=== PATIENT | female | born 1955 | race African-American/Black ===

== ENCOUNTER → 2017-06-17 | Outpatient (CLI) | payer OTHER ==
[~2017-06-17] MED LIST: B-CO1CAP3 PO; BIOTCAP2 PO; CHOL20005 PO; CYAN100020 PO; FLAX100019 PO; HERBAL LAXATIVE PO; INUL1CHW2 PO; MULT-845 PO; OMEG100046 PO; OMEGA RED PO; PYRI50TA77 PO; SNG10 PO; ZINC30TA3 PO
[2017-06-17 14:05] LABS: ESTIMATED AVERAGE GLUCOSE 126 mg/dl; HA1C FLAG Normal (Normal)
[2017-06-17 14:09] LABS: ALT/SGPT 24 U/L (12-78); AST/SGOT 10 U/L (15-37); BLOOD UREA NITROGEN 9 mg/dl (7-18); BUN/CREATININE RATIO 10.1 (10-20); CALCIUM 8.7 mg/dl (8.5-10.1); CARBON DIOXIDE 29 mmol/L (21-32); CHLORIDE 109 mmol/L (98-107); CREATININE 0.91 mg/dl (0.60-1.20); GLUCOSE 95 mg/dl (70-99); SODIUM 143 mmol/L (136-145)
[2017-06-17 14:20] LABS: ALB/GLOB RATIO 0.8 (0.9-2); ALKALINE PHOSPHATASE 57 U/L (45-117); CHOLESTEROL 173 mg/dl (0-200); CHOLESTEROL/HDL RATIO 4.2; HDL CHOLESTEROL 41 mg/dl; LDL CHOLESTEROL CALCULATED 115 mg/dl; TRIGLYCERIDES 85 mg/dl (0-150); VERY LOW DENSITY LIPOPROT CALC 17 mg/dl
== END | disposition home or self-care (01) ==
LOC: C.LABBC 10:30
PROVIDERS: ATTEND Physician Assistant Medical
DX: Z00.00 Encounter for general adult medical examination without abnormal findings (principal); J45.909 Unspecified asthma, uncomplicated; E55.9 Vitamin D deficiency, unspecified; R73.09 Other abnormal glucose

== ENCOUNTER → 2018-01-31 | Outpatient (CLI) | payer OTHER ==
--- NOTE | 2018-01-31 13:04 | DIAGNOSTIC IMAGING REPORT ---
CHEST 2 VIEWS ROUTINE CLINICAL HISTORY: J20.9 Acute bronchitis with [id number] dyspnea COMPARISON STUDY: No previous studies for comparison. FINDINGS: Mild bibasilar interstitial change. No focal or consolidative infiltrate. Pulmonary procedure clear. IMPRESSION: Mild basilar bronchitis versus pulmonary venous congestion. The above report was generated using voice recognition software. It may contain grammatical, syntax or spelling errors. Electronically signed by: Tyrone Syed M.D. 01/31/2018 1:03 PM Dictated Date/Time: 01/31/2018 12:58 PM
== END | disposition home or self-care (01) ==
LOC: C.RADBC 12:20
PROVIDERS: ATTEND Internal Medicine
DX: J20.9 Acute bronchitis, unspecified (principal)

== ENCOUNTER → 2018-02-14 | Outpatient (CLI) | payer OTHER ==
[2018-02-14 13:06] LABS: HEMOGLOBIN A1C 6.4 % (4.5-5.6)
== END | disposition home or self-care (01) ==
LOC: C.LABBC 10:32
PROVIDERS: ATTEND Internal Medicine
DX: R73.09 Other abnormal glucose (principal)

== ENCOUNTER → 2018-05-05 | Outpatient (CLI) | payer OTHER ==
[2018-05-06 06:23] LABS: HEMOGLOBIN A1C 5.9 % (4.5-5.6)
== END | disposition home or self-care (01) ==
LOC: C.LABBC 14:38
PROVIDERS: ATTEND Physician Assistant Medical
DX: R73.09 Other abnormal glucose (principal)

== ENCOUNTER 2021-12-25 08:44 | Inpatient (IN) ==
[2021-12-25] MEDS ORDERED: ONDANSETRON INJ 2 MG/ML 2 ML VIAL IV STA ×3 (09:05→12:47)
[2021-12-25] MEDS ORDERED: FAMOTIDINE 20MG IV PUSH 20 MG/5 ML SYR IV STA (09:05)
[2021-12-25] MEDS ORDERED: ACETAMINOPHEN 1,000 MG/100 ML VIAL IV STA (09:05)
--- NOTE | 2021-12-25 09:11 | Emergency Department Note ---
History of Present Illness General Chief complaint: Vomiting Stated complaint: VOMITING Time Seen by Provider: 12/25/21 08:53 Source: patient Mode of arrival: ambulatory Limitations: no limitations History of Present Illness Provider complaint: nausea, epigastric pain Onset (ago): hour(s) 7 Location: abdomen Radiation: non-radiation Severity: moderate Pain Consistency: + constant Maximum Pain Intensity: 5 Quality: + constant Relieved By: + none Exacerbated By: + none Associated symptoms: + loss of appetite and + nausea/vomiting; no chest pain, no fever/chills or no shortness of breath Treatments prior to arrival: none This is a 66-year-old female who presents emergency department complaining of epigastric pain and nausea. Patient states she felt fine when she went to bed last night around 10, however awoke around 230 with symptoms. She states she tried to walk around for a while to see if they would resolve and they did not. She states between 430 and 5 AM she then ate a small bowl of cereal which is her usual routine. Patient denies any recent known sick contacts or change in medication. Patient denies any change in the pain with change in position. Patient denies any recent change in bowel movements or urine. She denies feve rs, chills, chest pain, shortness of breath. No prior similar episodes. Patient states many years ago she was told she had problems with her gallbladder, however had no further follow-up or removal. Denies history of IBS, IBD, or PUD. Pt seen during a time of high acuity and national emergency pandemic while wearing PPE. Home Medications Medication Instructions Recorded Confirmed Type inhalational spacing device #1 ea 08/11/19 09/13/21 History (Aerochamber Plus Z Stat) azelastine 137 mcg (0.1 %) nasal 2 spray INTRANASAL DAILY PRN #30 ml 09/13/21 12/25/21 Rx spray aerosol calcium citrate 250 mg PO DAILY PRN #30 tab 09/13/21 12/25/21 Rx cholecalciferol (vitamin D3) 50 5,000 unit PO DAILY #360 tab 09/13/21 12/25/21 Rx mcg (2,000 unit) tablet fluticasone furoate 200 1 inh INH BID PRN #90 units 09/13/21 12/25/21 Rx mcg-vilanterol 25 mcg/dose inhalation powder (Breo Ellipta) loratadine 10 mg tablet 10 mg PO DAILY PRN #30 tab 09/13/21 12/25/21 Rx montelukast 10 mg tablet 10 mg PO DAILY PRN #30 tab 09/13/21 12/25/21 Rx multivitamin with minerals 1 tab PO .every other day tab 09/13/21 12/25/21 History (Hair,Skin and Nails) omega-3 acid ethyl esters 1 gram 1 cap PO .every other day #90 cap 09/13/21 12/25/21 History capsule Allergies Allergy/AdvReac Type Severity Reaction Status Date / Time metformin Allergy Verified 12/25/21 12:07 perflutren Allergy Verified 12/25/21 12:07 nickel AdvReac Intermediate Rash Unverified 12/25/21 12:07 peach AdvReac Intermediate Rash Unverified 12/25/21 12:07 NSAIDS (Non-Steroidal AdvReac Unknown UPSET Verified 12/25/21 12:07 Anti-Inflamma STOMACH POLLENS Allergy Mild RESPIRATORY Uncoded 12/25/21 12:07 ISSUES Past Med/Surg History Medical History (Updated 12/25/21 @ 17:18 by Lily Aragon DO) Asthma BMI 40.0-44.9, adult Chronic lower back pain Pre-diabetes Vitamin D deficiency Surgical History History of section History of colonoscopy Family History Unknown No pertinent family history Social History Smoking Status: Never smoker Hx Alcohol Use: No Hx Substance Use: No Preferred Language: Luxembourger Communication Ability: Effective Visual Impairment: Limited Hearing Ability: Normal Continuity Clerk Required: No Beliefs That Will Affect Care: None marital status: Single Current Living Situation: Alone current occupational status: disabled Feels Safe at Home: Yes Childhood Exposure to Second-Hand Smoke: Yes Dental Care, Regularly: No Physical Activity Frequency: Does not Exercise Seatbelt Use: always Sunscreen Use: No Assistive Devices: Denture - Upper, Denture - Lower and Glasses Review of Systems A total of 10 systems reviewed and were otherwise negative All systems reviewed & are unremarkable except as noted in HPI & below Physical Exam Vital Signs Vital Signs - 24 hr 12/25/21 08:47 12/25/21 12:06 Temperature 36.7 C Temperature Source Temporal Artery Scan Pulse Rate 63 Pulse Rate [Finger] 64 Respiratory Rate 18 Blood Pressure 162/78 H Blood Pressure [Right Arm] 158/69 H Blood Pressure Mean 106 Blood Pressure Mean [Right Arm] 98 Blood Pressure Position Sitting Pulse Oximetry 94 94 Oxygen Delivery Method Room Air Nasal Cannula Oxygen Flow Rate 2 Sepsis Recent Fever Within 48 Hours No Sepsis New/Unexplained Change in Mental Status No Sepsis Action Taken by Nursing No Action Required GENERAL: alert, uncomfortable appearing, well nourished, mild distress, non- toxic, BMI>40 EYE EXAM: normal conjunctiva, PERRL and EOM's grossly intact OROPHARYNX: no exudate, no erythema, lips, buccal mucosa, and tongue normal and mucous membranes are moist, edentulous NECK: supple, no nuchal rigidity, no adenopathy, non-tender LUNGS: Clear to auscultation. Normal chest wall mechanics, no w/r/r HEART: no murmurs, S1 normal and S2 normal ABDOMEN: abdomen soft, epigastric tenderness with palpation, normo-active bowel sounds, no masses, no rebound or guarding. BACK: Back is symmetrical on inspection and there is no deformity, no midline tenderness, no CVA tenderness. SKIN: no rashes and no bruising UPPER EXTREMITIES: upper extremities are grossly normal. FROM, nml pulses b/l. LOWER EXTREMITIES: No pitting edema. FROM, nml pulses b/l. NEURO EXAM: Normal sensorium, cranial nerves II-XII grossly intact, normal speech, no gross weakness of arms, no gross weakness of legs. Gross sensation intact. Course Course 1135: Discussed with patient. She is still vomiting bilious emesis, patient given a fresh emesis bag. Discussed results. 1145: Discussed with Herminia machado PA-C, will add Covid test and they will come and evaluate. Administered Medications Hydromorphone HCl (Hydromorphone Inj 0.5 Mg/0.5 Ml Syr) 0.5 mg IV Q6H PRN PRN Reason: Pain Stop: 01/08/22 14:39 Last Admin: 12/25/21 15:16 Dose: 0.5 mg Documented by: [id number] Potassium Chloride/Dextrose/Sod Cl (D5w And 1/2nss + 20meq Kcl) 20 meq in 1,000 mls @ 100 mls/hr IV .Q10H LANCE; Protocol Stop: 01/24/22 15:59 Last Admin: 12/25/21 15:17 Dose: 100 mls/hr Documented by: [id number] Multivitamins/Minerals (Cerovite Adv Formula Tab) 1 tab PO Q2D@0900 [facility] Stop: 01/24/22 14:39 Last Admin: 12/25/21 15:26 Dose: Not Given Documented by: [id number] Ondansetron HCl (Ondansetron Inj 2 Mg/Ml 2 Ml Vial) 4 mg IV Q6H PRN PRN Reason: Nausea And Vomiting Stop: 01/24/22 15:27 Last Admin: 12/25/21 16:03 Dose: 4 mg Documented by: [id number] Discontinued Medications Fentanyl Citrate (Fentanyl Citrate 100 Mcg/2 Ml Vial) 50 mcg IV Q15M PRN PRN Reason: Pain Stop: 01/08/22 11:41 Last Admin: 12/25/21 13:29 Dose: 50 mcg Documented by: [id number] Admin: 12/25/21 11:54 Dose: 50 mcg Documented by: [id number] Acetaminophen (Ofirmev) 1,000 mg in 100 mls @ 400 mls/hr IV NOW STA Stop: 12/25/21 09:19 Last Infusion: 12/25/21 11:15 Dose: 0 mls/hr Documented by: [id number] Admin: 12/25/21 09:49 Dose: 400 mls/hr Documented by: [id number] Famotidine (Pepcid 20mg Iv Push) 20 mg in 5 mls @ 2.5 mls/min IV NOW STA Stop: 12/25/21 09:06 Last Admin: 12/25/21 09:45 Dose: 2.5 mls/min Documented by: [id number] Sodium Chloride (Nss 1000ml) 1,000 mls @ 125 mls/hr IV .Q8H LANCE Stop: 01/24/22 09:14 Last Infusion: 12/25/21 14:55 Dose: 0 mls/hr Documented by: [id number] Admin: 12/25/21 09:46 Dose: 125 mls/hr Documented by: [id number] Piperacillin Sod/Tazobactam (Sod 4.5 gm/ Dextrose) 120 mls @ 200 mls/hr IV NOW ONE; Protocol Stop: 12/25/21 15:35 Last Infusion: 12/25/21 15:55 Dose: 0 mls/hr Documented by: [id number] Admin: 12/25/21 15:19 Dose: 200 mls/hr Documented by: [id number] Ondansetron HCl (Ondansetron Inj 2 Mg/Ml 2 Ml Vial) 4 mg IV NOW STA Stop: 12/25/21 09:06 Last Admin: 12/25/21 09:45 Dose: 4 mg Documented by: [id number] Ondansetron HCl (Ondansetron Inj 2 Mg/Ml 2 Ml Vial) 4 mg IV NOW STA Stop: 12/25/21 11:43 Last Admin: 12/25/21 11:54 Dose: 4 mg Documented by: [id number] Ondansetron HCl (Ondansetron Inj 2 Mg/Ml 2 Ml Vial) 4 mg IV NOW STA Stop: 12/25/21 12:48 Last Admin: 12/25/21 13:29 Dose: 4 mg Documented by: [id number] Medical Decision Making Differential Diagnosis Differential diagnoses includes but is not limited to gastritis, peptic ulcer disease, GERD, gallbladder disease, pancreatitis, small bowel obstruction, acute coronary syndrome, pericarditis, ischemic bowel, irritable bowel disease, irritable bowel syndrome, appendicitis, diverticulitis, malignancy, hernia, urinary tract infection, torsion, [/ectopic (if female)], perforation, trauma, infectious. Medical Records Attestation: I reviewed the patient's medical records. Home Medications Current Medication List: was personally reviewed by me Laboratory Data Attestation: I reviewed the patient's lab results. Result diagrams: 12/25/21 09:24 12/25/21 09:24 Lab Results 12/25/21 12/25/21 12/25/21 Range/Units 09:24 09:24 09:24 WBC 10.19 (4.8-10.8) K/uL RBC 5.31 (4.2-5.4) M/uL Hgb 14.6 (12.0-16.0) g/dL Hct 43.7 (37-47) % MCV 82.3 (80-100) fL MCH 27.5 (25-34) pg MCHC 33.4 (32-36) g/dL RDW Std Deviation 44.6 (36.4-46.3) fL RDW Coeff of Manohar 14.8 H (11.5-14.5) % Plt Count 266 (130-400) K/uL MPV 11.1 H (7.4-10.4) fL Immature Gran % (Auto) 0.2 % Neut % (Auto) 82.1 % Lymph % (Auto) 12.7 % Maverick % (Auto) 3.3 % Eos % (Auto) 1.3 % Baso % (Auto) 0.4 % Neut # (Auto) 8.37 H (1.4-6.5) K/uL Lymph # (Auto) 1.29 (1.2-3.4) K/uL Maverick # (Auto) 0.34 (0.11-0.59) K/uL Eos # (Auto) 0.13 (0-0.5) K/uL Baso # (Auto) 0.04 (0-0.2) K/uL Immature Gran # (Auto) 0.02 (0.00-0.02) K/uL Sodium 137 (136-145) mmol/L Potassium 4.0 (3.5-5.1) mmol/L Chloride 105 (98-107) mmol/L Carbon Dioxide 24 (21-32) mmol/L Anion Gap 8 (3-11) BUN 15 (6-23) mg/dl Creatinine 0.77 (0.6-1.2) mg/dl Est Cr Clr Drug Dosing 96.8 ml/min Est GFR ( Amer) 93.9 ml/min Est GFR (Non-Af Amer) 81.0 ml/min BUN/Creatinine Ratio 19.5 (10-20) Glucose 137 H (70-99(Fasting)) mg/dl Lactate 1.6 (0.4-2.0) mmol/L Calcium 9.5 (8.5-10.1) mg/dl Magnesium 2.1 (1.7-2.4) mg/dl Total Bilirubin 0.4 (0.2-1.0) mg/dl AST 13 (13-39) U/L ALT 13 (7-52) U/L Alkaline Phosphatase 52 (34-104) U/L Troponin I < 0.03 (0-0.04) ng/ml Total Protein 8.1 (6.0-8.3) gm/dl Albumin 4.2 (3.4-5.0) gm/dl Globulin 3.9 (2.5-4.0) gm/dl Albumin/Globulin Ratio 1.1 (0.9-2) Lipase 45 (11-82) U/L Imaging Data Radiologist's Impression: Abdomen Ultrasound 12/25/21 09:05 ULTRASOUND RIGHT UPPER QUADRANT ABDOMEN CLINICAL HISTORY: Epigastric abdominal pain. COMPARISON STUDY: No priors. TECHNIQUE: Real-time, grayscale, and color flow sonography of the right upper quadrant of the abdomen was performed. Images are reviewed in the transverse and longitudinal planes. FINDINGS: Liver: The liver is normal in size and echotexture. There is no intrahepatic biliary ductal dilatation. The main portal vein is patent. Gallbladder: The gallbladder is mildly distended measuring 9.7 cm in length. There are shadowing gallstones, with a 1.0 cm stone in the region of the gallbladder neck. There is no gallbladder wall thickening or pericholecystic fluid. A sonographic Pro's sign is reportedly present. Small foci of a denomyomatosis are incidentally noted. The common bile duct measures up to 0.4 cm in diameter. Pancreas: Visualized portions of the pancreatic head and body are normal in chivo earance. Right kidney: Survey images of the right kidney demonstrate normal size and echotexture. There is no hydronephrosis. Ascites: None. IMPRESSION: 1. Cholelithiasis with mild gallbladder distention and a 1 cm stone in the region of the gallbladder neck. Although there is no gallbladder wall thickening, a sonographic Pro's sign is reportedly present and acute cholecystitis is not excluded. Correlate with clinical and laboratory findings. 2. There is no intra or extrahepatic biliary ductal dilatation. ACT 112: Negative or not required by law. Electronically signed by: Timmy Ozuna M.D. 12/25/2021 11:19 AM Chest X-Ray 12/25/21 09:05 XR chest 1V portable CLINICAL HISTORY: epigastric pain. Evaluate lung bases. COMPARISON STUDY: No previous studies for comparison. TECHNIQUE: 1 view of the chest FINDINGS: Single frontal view of the chest demonstrates the cardiomediastinal silhouette to be within normal limits. There is a decreased inspiratory effort with elev ation of the hemidiaphragms and crowding of the bronchovascular markings at the lung bases and centrally. The lungs are clear of alveolar opacities. There is no evidence for pleural effusion. There is no evidence for vascular congestion. There is no acute osseous pathology. IMPRESSION: 1. There is a decreased inspiratory effort with otherwise no acute chest di sease. ACT 112: Negative or not required by law. Electronically signed by: Roberto Sauer M.D. 12/25/2021 9:50 AM MDM Narrative This is a 66-year-old female who presents emergency department complaining of epigastric pain, nausea and vomiting. Patient was afebrile and hemodynamically stable. Labs drawn and sent which were reassuring. Patient sent for ultrasound which did show large gallstone at the gallbladder neck and findings suggestive of possible evolving acute cholecystitis. Case discussed with general surgery on-call who came and evaluated the patient at bedside. Patient was given additional medication for nausea and pain. Patient remained hemodynamically stable while in the ER. An order was placed for continuous cardiac monitoring. The monitor shows a rate of _66_ with _normal sinus_ rhythm. Impression & Plan Nausea & vomiting, Acute cholecystitis due to biliary calculus, Acute epigastric pain Discharge Plan Visit Data Chief Complaint: Vomiting Stated Complaint: VOMITING ED Provider: Lily Aragon Discharge Problem: Nausea & vomiting, Acute cholecystitis due to biliary calculus, Acute epigastric pain Patient Disposition: Admitted As Inpatient Discharge Instructions Interventions: ED Discharge Assessment Last Done: 12/25/21 14:25 Discharge Problem: Nausea & vomiting Qualifiers: Vomiting type: bilious vomiting Qualified Code(s): R11.14 - Bilious vomiting
[2021-12-25] MEDS ORDERED: SODIUM CHLORIDE 0.9% 1000ML 1,000 ML IV SCH (09:15)
[2021-12-25 09:51] LABS: Basophils # (auto) 0.04 K/uL (0-0.2); Basophils % (auto) 0.4 %; Eosinophils # (auto) 0.13 K/uL (0-0.5); Eosinophils % (auto) 1.3 %; Hematocrit (blood only) 43.7 % (37-47); Hemoglobin 14.6 g/dL (12.0-16.0); Immature Granulocytes # (auto) 0.02 K/uL (0.00-0.02); Immature Granulocytes % (auto) 0.2 %; Lymphocytes # (auto) 1.29 K/uL (1.2-3.4); Lymphocytes % (auto) 12.7 %; Mean Corpuscular Hemoglobin 27.5 pg (25-34); Mean Corpuscular Hgb Conc 33.4 g/dL (32-36); Mean Corpuscular Volume 82.3 fL (80-100); Mean Platelet Volume 11.1 fL (7.4-10.4); Monocytes # (auto) 0.34 K/uL (0.11-0.59); Monocytes % (auto) 3.3 %; Neutrophils # (auto) 8.37 K/uL (1.4-6.5); Neutrophils % (auto) 82.1 %; Platelet Count 266 K/uL (130-400); RDW Coefficient of Variation 14.8 % (11.5-14.5); RDW Standard Deviation 44.6 fL (36.4-46.3); Red Blood Count 5.31 M/uL (4.2-5.4); White Blood Count 10.19 K/uL (4.8-10.8)
--- NOTE | 2021-12-25 09:51 | XRay Report ---
XR chest 1V portable CLINICAL HISTORY: epigastric pain. Evaluate lung bases. COMPARISON STUDY: No previous studies for comparison. TECHNIQUE: 1 view of the chest FINDINGS: Single frontal view of the chest demonstrates the cardiomediastinal silhouette to be within normal li mits. There is a decreased inspiratory effort with elevation of the hemidiaphragms and crowding of th e bronchovascular markings at the lung bases and centrally. The lungs are clear of alveolar opacities . There is no evidence for pleural effusion. There is no evidence for vascular congestion. There is n o acute osseous pathology. IMPRESSION: 1. There is a decreased inspiratory effort with otherwise no acute chest disease. ACT 112: Negative or not required by law. Electronically signed by: Roberto Sauer M.D. 12/25/2021 9:50 AM
[2021-12-25 10:11] LABS: Troponin I < 0.03 ng/ml (0-0.04)
[2021-12-25 10:15] LABS: Alanine Aminotransferase 13 U/L (7-52); Albumin Globulin Ratio 1.1 (0.9-2); Albumin Level 4.2 gm/dl (3.4-5.0); Alkaline Phosphatase 52 U/L (34-104); Anion Gap 8 (3-11); Aspartate Aminotransferase 13 U/L (13-39); BUN Creatinine Ratio 19.5 (10-20); Bilirubin,Total 0.4 mg/dl (0.2-1.0); Blood Urea Nitrogen 15 mg/dl (6-23); Calcium 9.5 mg/dl (8.5-10.1); Carbon Dioxide 24 mmol/L (21-32); Chloride 105 mmol/L (98-107); Creatinine Clr Calc Pharmacy 96.8 ml/min; Est GFR (African American) 93.9 ml/min; Globulin 3.9 gm/dl (2.5-4.0); Glucose 137 mg/dl (70-99(Fasting)); Lipase 45 U/L (11-82); Magnesium 2.1 mg/dl (1.7-2.4); Sodium 137 mmol/L (136-145); Total Protein 8.1 gm/dl (6.0-8.3)
--- NOTE | 2021-12-25 11:20 | Ultrasound Report ---
ULTRASOUND RIGHT UPPER QUADRANT ABDOMEN CLINICAL HISTORY: Epigastric abdominal pain. COMPARISON STUDY: No priors. TECHNIQUE: Real-time, grayscale, and color flow sonography of the right upper quadrant of the abdomen was performed. Images are reviewed in the transverse and longitudinal planes. FINDINGS: Liver: The liver is normal in size and echotexture. There is no intrahepatic biliary ductal dilatatio n. The main portal vein is patent. Gallbladder: The gallbladder is mildly distended measuring 9.7 cm in length. There are shadowing gall stones, with a 1.0 cm stone in the region of the gallbladder neck. There is no gallbladder wall thick ening or pericholecystic fluid. A sonographic Pro's sign is reportedly present. Small foci of yamileth omyomatosis are incidentally noted. The common bile duct measures up to 0.4 cm in diameter. Pancreas: Visualized portions of the pancreatic head and body are normal in appearance. Right kidney: Survey images of the right kidney demonstrate normal size and echotexture. There is no hydronephrosis. Ascites: None. IMPRESSION: 1. Cholelithiasis with mild gallbladder distention and a 1 cm stone in the region of the gallbladder neck. Although there is no gallbladder wall thickening, a sonographic Pro's sign is reportedly pre sent and acute cholecystitis is not excluded. Correlate with clinical and laboratory findings. 2. There is no intra or extrahepatic biliary ductal dilatation. ACT 112: Negative or not required by law. Electronically signed by: Timmy Ozuna M.D. 12/25/2021 11:19 AM
[2021-12-25] MEDS: fentaNYL citrate 100 MCG/2 ML VIAL IV PRN ×2 (11:54→13:29)
--- NOTE | 2021-12-25 12:54 | Surgery Consultation ---
Date of Consultation December 25, 2021 Assessment & Plan (1) Acute cholecystitis due to biliary calculus: pt is a 66 year-old female who presents to Er with RUQ and nausea and vomiting, IMP: Acute cholecystitis, cholelithiasis, plan, I recommend to admit pt to hospital for control pain iv antibiotic, iv fluid, will do laparoscopic cholecystectomy, possible open or cholangiogram, tomorrow, D/W benefits, risks and alternatives of the surgery, the risks - infection,bleeding, injury other organs, CT, DVT, stroke, , pt understood, she agrees with the surgery, I answered all questions, History of Present Illness Reason for Consultation: acute cholecystitis Requesting Physician: Timmy Beck MD History of Present Illness History of Present Illness General Chief complaint: Vomiting Stated complaint: VOMITING Time Seen by Provider: 12/25/21 08:53 Source: patient Mode of arrival: ambulatory Limitations: no limitations History of Present Illness Provider complaint: nausea, epigastric pain Onset (ago): hour(s) 7 Location: abdomen Radiation: non-radiation Severity: moderate Pain Consistency: + constant Maximum Pain Intensity: 5 Quality: + constant Relieved By: + none Exacerbated By: + none Associated symptoms: + loss of appetite and + nausea/vomiting; no chest pain, no fever/chills or no shortness of breath Treatments prior to arrival: none This is a 66-year-old female who presents emergency department complaining of epigastric pain and nausea. Patient states she felt fine when she went to bed last night around 10, however awoke around 230 with symptoms. She states she tried to walk around for a while to see if they would resolve and they did not. She states between 430 and 5 AM she then ate a small bowl of cereal which is her usual routine. Patient denies any recent known sick contacts or change in medication. Patient denies any change in the pain with change in position. Patient denies any recent change in bowel movements or urine. She denies fevers, chills, chest pain, shortness of breath. No prior similar episodes. Patient states many years ago she was told she had problems with her gallbladder, however had no further follow-up or removal. Pt seen during a time of high acuity and national emergency pandemic while wearing PPE. I ( Job Acevedo MD ) got a call for consult acute cholecystitis, cholelithiasis, I reviewed pt's H/P, labs, U/S study with pt, Home Medications Medication Instructions Recorded Confirmed Type inhalational spacing device #1 ea 08/11/19 09/13/21 History (Aerochamber Plus Z Stat) levalbuterol tartrate 45 2 puffs INH Q6H PRN #15 gm 04/19/20 09/13/21 Rx mcg/actuation aerosol inhaler magnesium hydroxide 311 mg 311 mg PO QID PRN 04/19/20 09/13/21 Hist ory chewable tablet azelastine 0.05 % eye drops 1 drp OPHTHALMIC (EYE) BID #6 ml 06/01/21 09/13/21 Rx azelastine 137 mcg (0.1 %) nasal 2 spray INTRANASAL DAILY PRN #30 ml 09/13/21 Rx spray aerosol calcium citrate 250 mg PO DAILY PRN #30 tab 09/13/21 Rx cholecalciferol (vitamin D3) 50 5,000 unit PO DAILY #360 tab 09/13/21 Rx mcg (2,000 unit) tablet fluticasone furoate 200 1 inh INH BID PRN #90 units 09/13/21 Rx mcg-vilanterol 25 mcg/dose inhalation powder (Breo Ellipta) loratadine 10 mg tablet 10 mg PO DAILY PRN #30 tab 09/13/21 Rx montelukast 10 mg tablet 10 mg PO DAILY PRN #30 tab 09/13/21 Rx multivitamin with minerals 1 tab PO .every other day tab 09/13/21 History (Hair,Skin and Nails) omega-3 acid ethyl esters 1 gram 1 cap PO .every other day #90 cap 09/13/21 09/13/21 History capsule Allergies Allergy/AdvReac Type Severity Reaction Status Date / Time metformin Allergy Verified 03/21/21 10:12 perflutren Allergy Verified 03/21/21 10:12 NSAIDS (Non-Steroidal AdvReac Unknown UPSET Verified 03/21/21 10:12 Anti-InflammaB STOMACH POLLENS Allergy Mild RESPIRATORY Uncoded 03/21/21 10:12 ISSUES Past Med/Surg History Medical History Asthma BMI 40.0-44.9, adult Chronic lower back pain Pre-diabetes Vitamin D deficiency Surgical History History of section History of colonoscopy Family History Unknown No pertinent family history Social History Smoking Status: Never smoker Hx Alcohol Use: No Hx Substance Use: No Preferred Language: Kyrgyz Communication Ability: Effective Visual Impairment: Limited Hearing Ability: Normal Beck Tender Required: No marital status: Single Current Living Situation: Alone current occupational status: disabled Feels Safe at Home: Yes Childhood Exposure to Second-Hand Smoke: Yes Dental Care, Regularly: No Physical Activity Frequency: Does not Exercise Seatbelt Use: always Sunscreen Use: No Review of Systems A total of 10 systems reviewed and were otherwise negative All systems reviewed & are unremarkable except as noted in HPI & below Allergies Allergy/AdvReac Type Severity Reaction Status Date / Time metformin Allergy Verified 12/25/21 12:07 perflutren Allergy Verified 12/25/21 12:07 nickel AdvReac Intermediate Rash Unverified 12/25/21 12:07 peach AdvReac Intermediate Rash Unverified 12/25/21 12:07 NSAIDS (Non-Steroidal AdvReac Unknown UPSET Verified 12/25/21 12:07 Anti-Inflamma STOMACH POLLENS Allergy Mild RESPIRATORY Uncoded 12/25/21 12:07 ISSUES Home Medications Medication Instructions Recorded Confirmed Type inhalational spacing device #1 ea 08/11/19 09/13/21 History (Aerochamber Plus Z Stat) azelastine 137 mcg (0.1 %) nasal 2 spray INTRANASAL DAILY PRN #30 ml 09/13/21 12/25/21 Rx spray aerosol calcium citrate 250 mg PO DAILY PRN #30 tab 09/13/21 12/25/21 Rx cholecalciferol (vitamin D3) 50 5,000 unit PO DAILY #360 tab 09/13/21 12/25/21 Rx mcg (2,000 unit) tablet fluticasone furoate 200 1 inh INH BID PRN #90 units 09/13/21 12/25/21 Rx mcg-vilanterol 25 mcg/dose inhalation powder (Breo Ellipta) loratadine 10 mg tablet 10 mg PO DAILY PRN #30 tab 09/13/21 12/25/21 Rx montelukast 10 mg tablet 10 mg PO DAILY PRN #30 tab 09/13/21 12/25/21 Rx multivitamin with minerals 1 tab PO .every other day tab 09/13/21 12/25/21 History (Hair,Skin and Nails) omega-3 acid ethyl esters 1 gram 1 cap PO .every other day #90 cap 09/13/21 12/25/21 History capsule Patient History Medical History (Updated 12/25/21 @ 12:55 by Job Acevedo MD) Asthma BMI 40.0-44.9, adult Chronic lower back pain Pre-diabetes Vitamin D deficiency Surgical History History of section History of colonoscopy Family History Unknown No pertinent family history Social History Smoking Status: Never smoker Hx Alcohol Use: No Hx Substance Use: No Preferred Language: Kyrgyz Communication Ability: Effective Visual Impairment: Limited Hearing Ability: Normal Beck Tender Required: No marital status: Single Current Living Situation: Alone current occupational status: disabled Feels Safe at Home: Yes Childhood Exposure to Second-Hand Smoke: Yes Dental Care, Regularly: No Physical Activity Frequency: Does not Exercise Seatbelt Use: always Sunscreen Use: No Physical Exam Constitutional: WD/WN, vitals as above obesity Eyes: PERRL, conjunctivae normal, anicteric sclerae Neck: trachea midline, no thyromegaly Respiratory: normal respiratory effort, lungs clear to auscultation Cardiovascular: RRR, no murmur, no edema Gastrointestinal (Abdomen): normal bowel sounds, soft, nontender, no hepatosplenomegaly soft, mild tenderness at RUQ, no rebound pain, no distend, BS + Musculoskeletal: no cyanosis or clubbing, extremities motor strength 5/5 Neurologic: patellar DTR's 2+ bilat, sensation intact Psychiatric: A+Ox3, euthymic affect Results & Data ([facility]) Vital Signs (Past 12 Hours) Vital Signs Temp Pulse Pulse Resp BP BP Pulse Ox 12/25/21 12:06 64 158/69 H 94 12/25/21 08:47 36.7 C 63 18 162/78 H 94 Laboratory Results Abnormal lab results 12/25/21 12/25/21 Range/Units 09:24 09:24 RDW Coeff of Manohar 14.8 H (11.5-14.5) % MPV 11.1 H (7.4-10.4) fL Neut # (Auto) 8.37 H (1.4-6.5) K/uL Glucose 137 H (70-99(Fasting)) mg/dl Diagnostic Findings ULTRASOUND RIGHT UPPER QUADRANT ABDOMEN CLINICAL HISTORY: Epigastric abdominal pain. COMPARISON STUDY: No priors. TECHNIQUE: Real-time, grayscale, and color flow sonography of the right upper quadrant of the abdomen was performed. Images are reviewed in the transverse and longitudinal planes. FINDINGS: Liver: The liver is normal in size and echotexture. There is no intrahepatic biliary ductal dilatation. The main portal vein is patent. Gallbladder: The gallbladder is mildly distended measuring 9.7 cm in length. There are shadowing gallstones, with a 1.0 cm stone in the region of the gallbladder neck. There is no gallbladder wall thickening or pericholecystic fluid. A sonographic Pro's sign is reportedly present. Small foci of adenomy omatosis are incidentally noted. The common bile duct measures up to 0.4 cm in diameter. Pancreas: Visualized portions of the pancreatic head and body are normal in appearance. Right kidney: Survey images of the right kidney demonstrate normal size and echotexture. There is no hydronephrosis. Ascites: None. IMPRESSION: 1. Cholelithiasis with mild gallbladder distention and a 1 cm stone in the region of the gallbladder neck. Although there is no gallbladder wall thickening, a sonographic Pro's sign is reportedly present and acute cholecystitis is not excluded. Correlate with clinical and laboratory findings. 2. There is no intra or extrahepatic biliary ductal dilatation.
[2021-12-25] MEDS ORDERED: [UNRECOGNIZED DRUG - OTHER] SCH (14:40)
[2021-12-25] MEDS ORDERED: HYDROmorphone INJ 0.5 MG/0.5 ML SYR IV PRN (14:40)
[2021-12-25] MEDS ORDERED: AZELASTINE HCL 0.1% NASAL 200 SPRAYS/27,400 MCG BTL PRN (14:40)
[2021-12-25] MEDS ORDERED: LORATADINE 10 MG TAB PO PRN (14:40)
[2021-12-25] MEDS ORDERED: SPACER SCH (14:40)
[2021-12-25] MEDS ORDERED: PIPERACILL/TAZOBAC CONSULT ACTIVE PRN (14:40)
[2021-12-25] MEDS ORDERED: FLUTICASONE/VILANTEROL 200/25MCG 14 PUFFS/INHALER INH PRN (14:40)
[2021-12-25] MEDS ORDERED: CALCIUM CITRATE 950 MG TAB PO PRN (14:53)
[2021-12-25] MEDS ORDERED: PIPERACILLIN/TAZOBACTAM 4.5 GM in DEXTROSE 5% 100 ML IV ONE (15:00)
[2021-12-25] MEDS: D5W AND 1/2NSS + 20MEQ KCL 20 MEQ/1,000 ML BAG IV SCH (15:17)
[2021-12-25] MEDS: CEROVITE ADV FORMULA TAB PO SCH ×2 (15:19→15:26)
[2021-12-25] MEDS ORDERED: ONDANSETRON INJ 2 MG/ML 2 ML VIAL IV PRN (15:28)
--- NOTE | 2021-12-25 16:55 | Electrocardiogram Report ---
Test Reason : Blood Pressure : / mmHG Vent. Rate : 059 BPM Atrial Rate : 059 BPM P-R Int : 204 ms QRS Dur : 086 ms QT Int : 448 ms P-R-T Axes : 042 001 -09 degrees QTc Int : 443 ms Sinus bradycardia No previous ECGs available Confirmed by Kendell Hernandez ([id number]) on 12/25/2021 4:55:02 PM Referred By: REFERRED SELF Confirmed By:Alli Hernandez
[2021-12-25] MEDS: oxyCODONE/ACETAMINOPHEN 5mg/325mg TAB PO PRN ×2 (17:56→22:26)
[2021-12-25] MEDS: PIPERACILLIN/TAZOBACTAM 4.5 GM in DEXTROSE 5% 100 ML IV SCH (20:52)
[2021-12-26] MEDS: D5W AND 1/2NSS + 20MEQ KCL 20 MEQ/1,000 ML BAG IV SCH ×2 (01:44→16:24)
[2021-12-26] MEDS: PIPERACILLIN/TAZOBACTAM 4.5 GM in DEXTROSE 5% 100 ML IV SCH ×3 (04:07→20:36)
[2021-12-26] MEDS: oxyCODONE/ACETAMINOPHEN 5mg/325mg TAB PO PRN ×3 (04:12→20:37)
[2021-12-26 07:25] LABS: Basophils # (auto) 0.02 K/uL (0-0.2); Basophils % (auto) 0.1 %; Eosinophils # (auto) 0.03 K/uL (0-0.5); Eosinophils % (auto) 0.2 %; Hematocrit (blood only) 40.6 % (37-47); Hemoglobin 13.3 g/dL (12.0-16.0); Immature Granulocytes # (auto) 0.03 K/uL (0.00-0.02); Immature Granulocytes % (auto) 0.2 %; Lymphocytes # (auto) 1.43 K/uL (1.2-3.4); Lymphocytes % (auto) 10.6 %; Mean Corpuscular Hemoglobin 27.6 pg (25-34); Mean Corpuscular Hgb Conc 32.8 g/dL (32-36); Mean Corpuscular Volume 84.2 fL (80-100); Mean Platelet Volume 11.1 fL (7.4-10.4); Monocytes # (auto) 1.48 K/uL (0.11-0.59); Neutrophils # (auto) 10.52 K/uL (1.4-6.5); Neutrophils % (auto) 77.9 %; Platelet Count 239 K/uL (130-400); RDW Coefficient of Variation 14.9 % (11.5-14.5); Red Blood Count 4.82 M/uL (4.2-5.4); White Blood Count 13.51 K/uL (4.8-10.8)
[2021-12-26 08:16] LABS: Bilirubin,Total 0.9 mg/dl (0.2-1.0)
[2021-12-26 08:17] LABS: Albumin Globulin Ratio 1.1 (0.9-2); Albumin Level 3.7 gm/dl (3.4-5.0); Calcium 8.7 mg/dl (8.5-10.1); Creatinine Clr Calc Pharmacy 96.8 ml/min; Est GFR (African American) 93.9 ml/min; Globulin 3.4 gm/dl (2.5-4.0); Potassium 3.8 mmol/L (3.5-5.1); Total Protein 7.1 gm/dl (6.0-8.3)
[2021-12-26] MEDS: CHOLECALCIFEROL 5,000 UNITS 125 MCG TAB PO SCH (08:46)
[2021-12-26] MEDS: OMEGA-3 (PURIFIED FISH OIL) 1 GM CAP PO SCH (08:46)
[2021-12-26] MEDS ORDERED: PROPOFOL IV EMULSION 10 MG/ML 20 ML VIAL IV ONE (09:43)
[2021-12-26] MEDS ORDERED: fentaNYL citrate 100 MCG/2 ML VIAL ONE (09:43)
[2021-12-26] MEDS ORDERED: ROCURONIUM BROMIDE 10 MG/ML 5 ML VIAL IV ONE ×2 (09:43→11:39)
[2021-12-26] MEDS ORDERED: LIDOCAINE 2% 2 ML VIAL/AMP(20MG/ML) INFIL ONE (09:43)
--- NOTE | 2021-12-26 10:25 | History & Physical Bridge Note ---
Date of Service December 26, 2021 History & Physical Bridge Note I have examined the patient, reviewed the History & Physical and in the interval since the performance of the History & Physical I have noted the following changes of clinical significance: no changes noted
[2021-12-26] MEDS ORDERED: BACITRACIN OINT 15 GM TUBE ONE (10:43)
[2021-12-26] MEDS ORDERED: BUPIVACAINE 0.5 % 5 MG/1 ML MPF 30ML VIAL ONE (10:43)
[2021-12-26] MEDS ORDERED: LIDOCAINE 1% LOCAL 20 ML VIAL ONE (10:44)
[2021-12-26] MEDS ORDERED: ONDANSETRON INJ 2 MG/ML 2 ML VIAL IV PRN (10:45)
[2021-12-26] MEDS ORDERED: PROMETHAZINE HCL 6.25 MG in SODIUM CHLORIDE 0.9% 50 ML IV PRN (10:45)
[2021-12-26] MEDS ORDERED: ePHEDrine sulfate 50 MG/ML AMP IV PRN (10:45)
[2021-12-26] MEDS ORDERED: fentaNYL citrate 100 MCG/2 ML VIAL IV PRN (10:45)
[2021-12-26] MEDS ORDERED: ATROPINE SULFATE 0.1 MG/ML 10ML SYR IV PRN (10:45)
--- NOTE | 2021-12-26 10:45 | Anesthesiology Consultation ---
Date of Service December 26, 2021 Assessment & Plan Chart Review Chart Review: Acceptable Risk for Surgery and Patient NOT seen in Pre Admission Testing Consults Requested none ASA ASA3 Proposed Anesthesia Anesthesia Type: General Risk / Benefits Reviewed With: PT / POA / Parent / Guardian, Accepts Plan and Informed Consent Obtained History Surgery Operation Date: 12/26/21 11:55 Proposed Procedures p Laparoscopic Cholecystectomy - Job Acevedo MD Height/Weight Height: 5 ft 7 in Weight: 118.1 kg Allergies Allergy/AdvReac Type Severity Reaction Status Date / Time metformin Allergy Verified 12/25/21 12:07 perflutren Allergy Verified 12/25/21 12:07 nickel AdvReac Intermediate Rash Unverified 12/25/21 12:07 peach AdvReac Intermediate Rash Unverified 12/25/21 12:07 NSAIDS (Non-Steroidal AdvReac Unknown UPSET Verified 12/25/21 12:07 Anti-Inflamma STOMACH POLLENS Allergy Mild RESPIRATORY Uncoded 12/25/21 12:07 ISSUES Medications Home Medications Medication Instructions Recorded Confirmed Last Taken inhalational spacing device #1 ea 08/11/19 09/13/21 Unknown (Aerochamber Plus Z Stat) azelastine 137 mcg (0.1 %) nasal 2 spray INTRANASAL DAILY PRN #30 ml 09/13/21 12/25/21 Unknown spray aerosol calcium citrate 250 mg PO DAILY PRN #30 tab 09/13/21 12/25/21 Unknown cholecalciferol (vitamin D3) 50 5,000 unit PO DAILY #360 tab 09/13/21 12/25/21 Unknown mcg (2,000 unit) tablet fluticasone furoate 200 1 inh INH BID PRN #90 units 09/13/21 12/25/21 Unknown mcg-vilanterol 25 mcg/dose inhalation powder (Breo Ellipta) loratadine 10 mg tablet 10 mg PO DAILY PRN #30 tab 09/13/21 12/25/21 Unknown montelukast 10 mg tablet 10 mg PO DAILY PRN #30 tab 09/13/21 12/25/21 Unknown multivitamin with minerals 1 tab PO .every other day tab 09/13/21 12/25/21 Unknown (Hair,Skin and Nails) omega-3 acid ethyl esters 1 gram 1 cap PO .every other day #90 cap 09/13/21 12/25/21 Unknown capsule Active Medications Generic Name Dose Route Start Last Admin Trade Name Freq PRN Reason Stop Dose Admin Fish Oil 1 gm 12/26/21 09:00 12/26/21 08:46 [place]-3 (Purified Fish Oil) 1 Gm Cap PO 01/25/22 08:59 1 gm Q2D@0900 LANCE Administration Hydromorphone HCl 0.5 mg 12/25/21 14:40 12/25/21 15:16 Hydromorphone Inj 0.5 Mg/0.5 Ml Syr IV 01/08/22 14:39 0.5 mg Q6H PRN Administration Pain Potassium Chloride/Dextrose/Sod Cl 20 meq in 1,000 mls @ 100 mls/hr 12/25/21 16:00 12/26/21 09:59 D5w And 1/2nss + 20meq Kcl IV 01/24/22 15:59 0 mls/hr .Q10H LANCE Infusion Protocol Piperacillin Sod/Tazobactam 120 mls @ 30 mls/hr 12/25/21 20:00 12/26/21 08:10 Sod 4.5 gm/ Dextrose IV 01/04/22 19:59 Infused Q8H LANCE Infusion Protocol Multivitamins/Minerals 1 tab 12/25/21 14:40 12/25/21 15:26 Cerovite Adv Formula Tab PO 01/24/22 14:39 Not Given Q2D@0900 LANCE Ondansetron HCl 4 mg 12/25/21 15:28 12/25/21 16:03 Ondansetron Inj 2 Mg/Ml 2 Ml Vial IV 01/24/22 15:27 4 mg Q6H PRN Administration Nausea And Vomiting Oxycodone/Acetaminophen 1 tab 12/25/21 14:40 12/26/21 08:45 Oxycodone/Acetaminophen 5mg/325mg Tab PO 01/08/22 14:39 1 tab Q4H PRN Administration Pain Vitamin D 5,000 units 12/26/21 09:00 12/26/21 08:46 Cholecalciferol 5,000 Units 125 Mcg Tab PO 01/25/22 08:59 5,000 units DAILY LANCE Administration NPO Date Last Intake of Fluids: 12/25/21 Time Last Intake of Fluids: 22:30 Date Last Intake of Solids: 12/25/21 Time Last Intake of Solids: 17:30 Past Medical History Medical History (Updated 12/25/21 @ 17:18 by Lily Aragon DO) Asthma BMI 40.0-44.9, adult Chronic lower back pain Pre-diabetes Vitamin D deficiency Exercise / Class Metabolic Activity II 4-5 Yardwork/Stairs/Walk up hill Past Family History Family History Unknown No pertinent family history Past Surgical History Surgical History History of section History of colonoscopy Past Anesthesia History No Hx of Anesthesia Complications and No Family Hx of Anesthesia Complications History of PONV No Hx of PONV and No Hx of Motion Sickness Social History Smoking Status: Never smoker Hx Alcohol Use: No Hx Substance Use: No Physical Exam Vital Signs Last Vital Signs Temp 37.4 C 12/26/21 10:21 Pulse 62 12/26/21 10:21 Resp 20 12/26/21 10:21 BP 148/74 H 12/26/21 10:21 Pulse Ox 98 12/26/21 10:21 ENMT Mouth: no dentition abnormality Thyromental Distance: > or= 3.5 Finger Breadths Mallampati Class: II Neck normal visual inspection Respiratory normal respiratory effort Auscultation: lungs clear to auscultation bilaterally Cardiovascular Rate/Rhythm: regular rate and regular rhythm Psychiatric Orientation: alert Testing Laboratory Results 12/26/21 07:00 12/26/21 07:00
[2021-12-26] MEDS ORDERED: KETOROLAC 30 MG/ML VIAL ONE (11:11)
[2021-12-26] MEDS ORDERED: ceFAZolin 330 MG/ML 1 GM VIAL ONE (11:11)
[2021-12-26] MEDS ORDERED: ONDANSETRON INJ 2 MG/ML 2 ML VIAL ONE (11:11)
[2021-12-26] MEDS ORDERED: DEXAMETHASONE SOD INJ 4 MG/ML VIAL ONE (11:11)
[2021-12-26] MEDS ORDERED: ceFAZolin 2000MG 2,000 MG/15 ML SYR IV ONE (11:36)
[2021-12-26] MEDS ORDERED: NEOSTIGMINE METHYLSULFATE 1 MG/ML 10ML VIAL ONE (11:42)
[2021-12-26] MEDS ORDERED: GLYCOPYRROLATE 0.2 MG/ML VIAL ONE (11:42)
[2021-12-26] MEDS ORDERED: MoRPHine SULFATE 2 MG/ML CARP ONE (12:04)
--- NOTE | 2021-12-26 12:16 | Post Operative Brief Note ---
Immediate Post Op Note v1 Date of Surgery December 26, 2021 Pre & Post Diagnosis Operation Date: 12/26/21 11:55 Pre-Op Diagnosis: Acute cholecystitis due to biliary calculus. Post-Op Diagnosis: Acute cholecystitis due to biliary calculus. gangrenous gallbladder I identified the patient and participated in the time-out.: Yes Procedure Operation Date: 12/26/21 11:55 Actual Procedures p Laparoscopic Cholecystectomy - Job Acevedo MD Surgeon Job Acevedo MD Black Top Paver Operator EDGAR Wyman Estimated Blood Loss 20 Findings Consistent with Post-Op Diagnosis acute cholecystitis, gangrenous gallbladder Fluids 1000ml Specimens gallbladder Anesthesia Type General Complications none Disposition Accompanied Patient To Recovery: Yes
--- NOTE | 2021-12-26 12:55 | Operative Report (OR) ---
DATE OF PROCEDURE: 12/26/2021 PREOPERATIVE DIAGNOSES: Acute cholecystitis, cholelithiasis. POSTOPERATIVE DIAGNOSES: Acute cholecystitis, cholelithiasis, and gangrenous gallbladder. OPERATION: Laparoscopic cholecystectomy. SURGEON: Job Acevedo MD. CIDER PRESS OPERATOR: Herminia Oro PA-C. ANESTHESIA: General. ESTIMATED BLOOD LOSS: About 20 mL. FINDINGS: Acute cholecystitis, cholelithiasis with gangrenous gallbladder. COMPLICATIONS: None. INDICATIONS FOR THE PROCEDURE: This is a 66-year-old female who was admitted to the hospital for acu te cholecystitis, cholelithiasis. I recommended to do laparoscopic cholecystectomy, possible open, p ossible cholangiogram. I did talk to the patient about the benefit, risk, alternate procedure. I in dicated the risks may include, but not limited to, such as bleeding, infection, injury to other organ s, incisional hernia, myocardial infarction, DVT, stroke, even . The patient understands. She signed informed consent and I answered all questions. DETAILS OF PROCEDURE: After we identified the patient and verified the procedure, we brought the pat ient to the OR, put the patient in the supine position on the OR table. The patient received SCD on bilateral legs to prevent DVT. Also, patient received 2 grams of Ancef IV for prophylactic antibioti c. The patient received general anesthesia without difficulty. The abdomen was prepped and draped i n routine sterile fashion. After timeout, I injected the local anesthesia by using 1% lidocaine mixe d with 0.5% Marcaine just above the umbilicus. Then, I made a small incision just above the umbilicu s, opened fascia, opened peritoneum. Under direct vision, put a Jed trocar in, connected to CO2 t o create pneumoperitoneum, flow rate at 6 liters per minute, pressure not more than 14 mmHg. Once we got a nice pneumoperitoneum, we put a camera in, looked around the abdomen, it shows normal f inding on the liver; however, the gallbladder shows significant distention of the gallbladder with ga ngrenous gallbladder. At this moment, we put another two 5 mm trocars in the right upper quadrant an d one 11 trocar in the epigastric area. Once all trocars in, we used a large needle to decompress th e gallbladder first. Then, we used the grasper to hold the gallbladder on the base of gallbladder, p ut in the direction to the diaphragm, another grasper to hold the pouch of gallbladder, put a lateral to explore the triangle of Calot. The cystic duct was identified and mobilized. I put two 10 mm metal clips on the proximal cystic demetrio t, one on the distal cystic duct, then used a scissor for transection of cystic duct; rechecked, no b ile leak. Then, the cystic artery was identified and mobilized. I put two 10 mm metal clips on the proximal cystic artery, one on the distal cystic artery, then used a scissor for transection of cysti c artery; rechecked, no active bleeding. Then, we used the Bovie to take down gallbladder from the l iver bed. Then, we removed gallbladder through the catch bag. Then, we reinserted the Jed trocar in, connected to CO2 to create pneumoperitoneum, again looked a round the abdomen, no bile leak and no active bleeding from the liver bed. Then, we removed all troc ars under direct vision. No active bleeding from the trocar site. Pneumoperitoneum was released, th en I closed the umbilical incision fascial layer by using 0 Vicryl [id number] x2, closed subcuta neous layer by using 2-0 Vicryl interruptedly, closed skin by using 4-0 Vicryl continuous running, cl osed another two 5 mm trocar site of skin only by using 4-0 Vicryl and closed the epigastric incision , the fascial layer by using 0 Vicryl [id number] x2, closed subcutaneous layer by using 2-0 Vicr yl interruptedly, closed skin by using 4-0 Vicryl interruptedly. Then, we put the dressing on. The patient tolerated the procedure well. All instrument, needle, sponge counts were correct x2 at t he end of the case. The patient was transferred to recovery room in stable condition. The specimen was sent to pathology. After the procedure, I did talk to the patient about the OR finding and the p rocedure we did, patient understands. The first aid teacher, Herminia, was necessary for this procedure. Her role was to hold the camera, exp osure and retraction. Job ID: [id number]
--- NOTE | 2021-12-26 14:38 | Anesthesiology Progress Note ---
Date of Service December 26, 2021 Anesthesia Post Procedure Vital Signs Vital Signs: Temp Pulse Pulse Resp BP BP Pulse Ox 12/26/21 14:34 36.9 C 65 16 118/66 91 12/26/21 14:10 36.9 C 77 16 129/63 90 12/26/21 13:35 36.9 C 78 14 119/66 94 12/26/21 13:10 36.8 C 68 21 140/64 94 12/26/21 13:00 64 17 143/66 H 97 12/26/21 12:50 65 16 144/67 H 98 12/26/21 12:40 36.7 C 73 27 H 155/67 H 96 12/26/21 10:21 37.4 C 62 20 148/74 H 98 12/26/21 07:44 36.9 C 72 18 119/70 93 12/25/21 21:51 37.3 C 68 16 122/72 94 12/25/21 14:46 36.7 C 62 18 169/82 H 95 Pain Intensity Generalized: Pain Intensity: 6 Abdomen: Pain Intensity: 1 Transfer of Care Handoff Completed per policy Notes Mental Status: alert / awake / arousable Patient Amnestic to Procedure: Yes Nausea / Vomiting: adequately controlled Pain: adequately controlled Airway Patency, RR, SpO2: stable & adequate BP & HR: stable & adequate Hydration State: stable & adequate Anesthetic Complications: no major complications apparent
[2021-12-27] MEDS: D5W AND 1/2NSS + 20MEQ KCL 20 MEQ/1,000 ML BAG IV SCH ×3 (02:36→23:37)
[2021-12-27] MEDS: PIPERACILLIN/TAZOBACTAM 4.5 GM in DEXTROSE 5% 100 ML IV SCH ×2 (03:55→13:20)
[2021-12-27] MEDS: oxyCODONE/ACETAMINOPHEN 5mg/325mg TAB PO PRN ×3 (03:57→22:07)
[2021-12-27 06:46] LABS: Basophils # (auto) 0.02 K/uL (0-0.2); Basophils % (auto) 0.2 %; Eosinophils % (auto) 1.8 %; Hematocrit (blood only) 37.3 % (37-47); Hemoglobin 12.2 g/dL (12.0-16.0); Immature Granulocytes # (auto) 0.02 K/uL (0.00-0.02); Immature Granulocytes % (auto) 0.2 %; Lymphocytes # (auto) 2.09 K/uL (1.2-3.4); Lymphocytes % (auto) 18.7 %; Mean Corpuscular Hemoglobin 27.7 pg (25-34); Mean Corpuscular Hgb Conc 32.7 g/dL (32-36); Mean Corpuscular Volume 84.6 fL (80-100); Mean Platelet Volume 10.9 fL (7.4-10.4); Monocytes # (auto) 1.38 K/uL (0.11-0.59); Monocytes % (auto) 12.3 %; Neutrophils # (auto) 7.47 K/uL (1.4-6.5); Neutrophils % (auto) 66.8 %; Platelet Count 230 K/uL (130-400); RDW Standard Deviation 46.8 fL (36.4-46.3); Red Blood Count 4.41 M/uL (4.2-5.4); White Blood Count 11.18 K/uL (4.8-10.8)
[2021-12-27 07:09] LABS: Albumin Level 3.4 gm/dl (3.4-5.0); BUN Creatinine Ratio 9.1 (10-20); Bilirubin,Total 0.8 mg/dl (0.2-1.0); Calcium 8.6 mg/dl (8.5-10.1); Creatinine Clr Calc Pharmacy 84.7 ml/min; Est GFR (African American) 79.9 ml/min; Est GFR (Non-African American) 68.9 ml/min; Globulin 3.3 gm/dl (2.5-4.0); Total Protein 6.7 gm/dl (6.0-8.3)
[2021-12-27] MEDS: CEROVITE ADV FORMULA TAB PO SCH (09:37)
[2021-12-27] MEDS: CHOLECALCIFEROL 5,000 UNITS 125 MCG TAB PO SCH (09:37)
[2021-12-27] MEDS: ACETAMINOPHEN 325 MG TAB PO PRN (15:40)
[2021-12-27] MEDS ORDERED: DOCUSATE SODIUM 100 MG CAP PO ONE (15:59)
--- NOTE | 2021-12-27 16:07 | Surgery Progress Note ---
Date of Service December 27, 2021 Assessment & Plan (1) Acute cholecystitis due to biliary calculus: Plan: Postop day #1 status post laparoscopic cholecystectomy Afebrile, vital signs stable Postop pain control No nausea no vomiting Urinating without difficulty Plan: Continue pain management as needed We will advance to heart healthy diet for dinner We will add p.o. Colace Encourage out of bed to chair and ambulation Continue incentive and SCDs Hopeful discharge tomorrow Discussed with Dr. Acevedo who agrees with above Admission and Anticipated Discharge Date Admission Date: December 25, 2021 Subjective Feeling tired today. Did not sleep well last night. Abdominal pain controlled pain mostly when taking deep breaths. Preoperative pain resolved No nausea no vomiting Tolerated full liquids Urinating without difficulty Not much ambulating but getting out of bed to the bathroom. No chest pain or shortness of breath Physical Exam Constitutional: WD/WN, vitals as above + obese; no acute distress and not ill appearing Neck: normal visual inspection and trachea midline Respiratory: normal respiratory effort; no respiratory distress, no labored breathing and no retractions Gastrointestinal (Abdomen): Inspection/Auscultation: abdomen normal to inspection and + abdominal surgical incision (Clean, dry, intact with dressings present); abdomen not distended Percussion/Palpation: + abdomen tender (At incision sites) and abdomen soft; no guarding and abdomen not rigid Skin: no rashes, warm and dry no jaundice Psychiatric: Orientation: alert and oriented x 3 Results & Data ([facility]) Vital Signs (Past 12 Hours) Vital Signs Temp Pulse Resp BP Pulse Ox 12/27/21 12:01 36.8 C 59 L 18 100/65 93 12/27/21 09:49 94 12/27/21 07:40 95 12/27/21 07:39 85 L 12/27/21 07:38 36.4 C L 57 L 18 111/67 78 L 12/27/21 07:23 36.5 C 57 L 18 109/64 96 Laboratory Results 12/27/21 12/27/21 Range/Units 06:15 06:15 WBC 11.18 H (4.8-10.8) K/uL RBC 4.41 (4.2-5.4) M/uL Hgb 12.2 (12.0-16.0) g/dL Hct 37.3 (37-47) % MCV 84.6 (80-100) fL MCH 27.7 (25-34) pg MCHC 32.7 (32-36) g/dL RDW Std Deviation 46.8 H (36.4-46.3) fL RDW Coeff of Manohar 15.0 H (11.5-14.5) % Plt Count 230 (130-400) K/uL MPV 10.9 H (7.4-10.4) fL Immature Gran % (Auto) 0.2 % Neut % (Auto) 66.8 % Lymph % (Auto) 18.7 % [place] % (Auto) 12.3 % Eos % (Auto) 1.8 % Baso % (Auto) 0.2 % Neut # (Auto) 7.47 H (1.4-6.5) K/uL Lymph # (Auto) 2.09 (1.2-3.4) K/uL [place] # (Auto) 1.38 H (0.11-0.59) K/uL Eos # (Auto) 0.20 (0-0.5) K/uL Baso # (Auto) 0.02 (0-0.2) K/uL Immature Gran # (Auto) 0.02 (0.00-0.02) K/uL Sodium 136 (136-145) mmol/L Potassium 4.0 (3.5-5.1) mmol/L Chloride 103 (98-107) mmol/L Carbon Dioxide 30 (21-32) mmol/L Anion Gap 3 (3-11) BUN 8 (6-23) mg/dl Creatinine 0.88 (0.6-1.2) mg/dl Est Cr Clr Drug Dosing 84.7 ml/min Est GFR ( Amer) 79.9 ml/min Est GFR (Non-Af Amer) 68.9 ml/min BUN/Creatinine Ratio 9.1 L (10-20) Glucose 95 (70-99(Fasting)) mg/dl Calcium 8.6 (8.5-10.1) mg/dl Total Bilirubin 0.8 (0.2-1.0) mg/dl AST 17 (13-39) U/L ALT 19 (7-52) U/L Alkaline Phosphatase 41 (34-104) U/L Total Protein 6.7 (6.0-8.3) gm/dl Albumin 3.4 (3.4-5.0) gm/dl Globulin 3.3 (2.5-4.0) gm/dl Albumin/Globulin Ratio 1.0 (0.9-2)
[2021-12-28] MEDS: oxyCODONE/ACETAMINOPHEN 5mg/325mg TAB PO PRN ×2 (04:49→17:31)
[2021-12-28] MEDS: CHOLECALCIFEROL 5,000 UNITS 125 MCG TAB PO SCH (08:51)
[2021-12-28] MEDS: OMEGA-3 (PURIFIED FISH OIL) 1 GM CAP PO SCH (08:51)
[2021-12-28] MEDS: DOCUSATE SODIUM 100 MG CAP PO SCH ×2 (08:53→20:10)
--- NOTE | 2021-12-28 09:45 | Surgery Progress Note ---
Date of Service December 28, 2021 Assessment & Plan (1) Acute cholecystitis due to biliary calculus: Plan: Postop day #2 status post laparoscopic cholecystectomy Afebrile, vital signs stable Postop pain controlled No nausea no vomiting Urinating without difficulty passing gas Plan: Continue pain management as needed continue diet will change to DM2 diet given prediabetic status continue p.o. Colace Encourage out of bed to chair and ambulation Continue incentive and SCDs discharge tomorrow as patients family had emergency and has no way of getting home today Discussed with dr. lee who agrees with above. Admission and Anticipated Discharge Date Admission Date: December 25, 2021 Subjective feeling better today abdominal pain and soreness at incisions, controlled with Percocet some head congestion last night urinating without difficulty passing gas Physical Exam Constitutional: well developed, well nourished and + obese; no acute distress and not ill appearing Neck: normal visual inspection and trachea midline Respiratory: normal respiratory effort; no respiratory distress Gastrointestinal (Abdomen): Inspection/Auscultation: abdomen normal to inspection, normal bowel sounds and + abdominal surgical incision (covered with dressings, mild spotting present); abdomen not distended Percussion/Palpation: + abdomen tender (at incision sites appropriate postop) and abdomen soft; no guarding and abdomen not rigid Skin: no rashes, warm and dry Psychiatric: A+Ox3, euthymic affect Results & Data ([facility]) Vital Signs (Past 12 Hours) Vital Signs Temp Pulse Resp BP Pulse Ox 12/28/21 07:57 36.6 C 65 16 120/76 90 12/28/21 07:00 37.1 C 69 18 129/75 90 12/27/21 22:19 36.9 C 75 16 116/70 90
[2021-12-28] MEDS: MONTELUKAST SODIUM 10 MG TABLET PO PRN (20:09)
[2021-12-29] MEDS: oxyCODONE/ACETAMINOPHEN 5mg/325mg TAB PO PRN (05:17)
[2021-12-29] MEDS: CHOLECALCIFEROL 5,000 UNITS 125 MCG TAB PO SCH (09:03)
[2021-12-29] MEDS: CEROVITE ADV FORMULA TAB PO SCH (09:03)
[2021-12-29] MEDS: DOCUSATE SODIUM 100 MG CAP PO SCH ×2 (09:03→21:14)
[2021-12-29] MEDS ORDERED: POLYETHYLENE (MIRALAX) 17 GM PACK PO STA (09:41)
--- NOTE | 2021-12-29 09:43 | Discharge Summary ---
Date of Service December 29, 2021 Principal Diagnosis Acute calculous cholecystitis Discharge Exam Constitutional WD/WN, vitals as above well developed, well nourished and + obese; no acute distress and not ill appearing Neck normal visual inspection and trachea midline Respiratory normal respiratory effort; no respiratory distress, no labored breathing and no retractions Gastrointestinal (Abdomen) Inspection/Auscultation: abdomen normal to inspection, normal bowel sounds and + abdominal surgical incision (covered with dressings, mild spotting present); abdomen not distended Percussion/Palpation: + abdomen tender (at incision sites appropriate postop) and abdomen soft; no guarding and abdomen not rigid Skin no rashes, warm and dry no jaundice Psychiatric A+Ox3, euthymic affect Orientation: alert and oriented x 3 Discharge Data Allergies Allergy/AdvReac Type Severity Reaction Status Date / Time metformin Allergy Verified 12/25/21 12:07 perflutren Allergy Verified 12/25/21 12:07 nickel AdvReac Intermediate Rash Unverified 12/25/21 12:07 peach AdvReac Intermediate Rash Unverified 12/25/21 12:07 NSAIDS (Non-Steroidal AdvReac Unknown UPSET Verified 12/25/21 12:07 Anti-Inflamma STOMACH POLLENS Allergy Mild RESPIRATORY Uncoded 12/25/21 12:07 ISSUES Procedures Performed Operation Date: 12/26/21 11:55 Actual Procedures p Laparoscopic Cholecystectomy - Job Acevedo MD Ordered Studies 12/25/21 09:05 US abdomen limited Stat Hospital Course (1) Acute cholecystitis due to biliary calculus: Discharge Plan Discharge Items Patient Disposition: Home - Self-Care Reason For Visit: VOMITING,LOWER ABD PAIN Discharge Diagnosis: Acute gangrenous cholecystitis Activity: Per Instructions section Non-emergency contact: Primary Care Provider and Surgeon Call non-emergency contact if: your pain is not controlled, you have a fever, your temperature is above 101, your wound has increased redness, your wound has increased drainage and your wound pain has increased Follow-up/Referrals: Ole Catherine MD [Primary Care Provider] - Diet: Regular Addtl Attending Provider Instructions: Post-Surgical ~Discharge Instructions Activity Recommendations: - lifting limitation: (20 pounds for 4 weeks), - exercise/sex/sports limit: (nonstrenuous for 2 weeks), - driving or machine use limit: (none for 1 week or until pain free and no longer taking narcotic pain medication), - Shower/bathe limit: (february shower beginning Saturday) Diet: - Resume previous diet SPECIAL CARE INSTRUCTIONS: - May shower on Saturday. Sponge bath and wash hair in meantime. On Saturday, remove outer dressings and shower. Let water run over area and pat dry. - Leave steri strips on for one week and then remove. They may fall off on their own that is okay. - Call the surgeon's office with any questions or concerns - - (ex. temperature higher than 101 degrees F, excessive bleeding or pain). MEDICATIONS: - Resume previous medications unless instructed otherwise by your surgeon. - May take extra strength Tylenol as needed for mild to moderate pain -650 mg Tylenol every 6 hours as needed - Percocet 1 every 4 hours, as needed for moderate to severe pain - Recommend daily stool softener (Colace) while taking narcotic pain medication to prevent constipation and straining. FOLLOW UP VISIT: - If not already scheduled, please call the office to schedule a two week follow-up appointment. Office number Pending Studies at Discharge: Yes (gallbladder pathology, will be reviewed at follow-up visit) Stand-Alone Forms: My [facility], Smoking Cessation Medications and DC Order Prescriptions: Continued azelastine 137 mcg (0.1 %) aerosol,spray 2 spray intranasal DAILY PRN (Reason: allergy symptoms) Qty: 30 RF: 2 calcium citrate 250 mg calcium tablet 250 mg PO DAILY PRN (Reason: calcium deficiency) Qty: 30 RF: 5 cholecalciferol (vitamin D3) 50 mcg (2,000 unit) tablet 5,000 unit PO DAILY Qty: 360 RF: 3 loratadine 10 mg tablet 10 mg PO DAILY PRN (Reason: allergy symptoms) Qty: 30 RF: 5 montelukast 10 mg tablet 10 mg PO DAILY PRN (Reason: allergy symptoms) Qty: 30 RF: 5 Breo Ellipta 200-25 mcg/dose blister with device 1 inh INH DAILY PRN (Reason: allergy symptoms) Qty: 90 RF: 0 (DME) Aerochamber Plus Z Stat spacer See Dose Instructions .ROUTE .MEDSUPPLY Qty: 1 RF: 0 Hair,Skin and Nails Tablet 1 tab PO .every other day RF: 0 omega-3 acid ethyl esters 1 gram capsule 1 cap PO .every other day Qty: 90 RF: 0 Admission Data Admit Date/Time: 12/25/21 12:41 Attending Provider: Job Acevedo Admit Provider: Job Acevedo Primary Care Provider: Ole Catherine
--- NOTE | 2021-12-29 13:10 | Surgery Progress Note ---
Date of Service December 29, 2021 Assessment & Plan (1) Acute cholecystitis due to biliary calculus: Plan: Postop day #3 status post laparoscopic cholecystectomy Afebrile, vital signs stable Postop pain controlled, improving No nausea no vomiting Urinating without difficulty passing gas, no bowel movement since last Saturday Plan: doing well postoperatively patient concerned about going home without having a bowel movement continue BID colace will add Miralax she can be discharged if has a bowel movement follow-up surgery office in [address] Hull covering this weekend if patient still here tomorrow Discussed with dr. lee who agrees with above. Admission and Anticipated Discharge Date Admission Date: December 25, 2021 Subjective feeling well still has not had a bowel movement but passing gas no n/v tolerating diet incisional pain is present but getting better urinating without difficulty Physical Exam Constitutional: WD/WN, vitals as above + obese; no acute distress and not ill appearing Neck: normal visual inspection and trachea midline Respiratory: normal respiratory effort; no respiratory distress Gastrointestinal (Abdomen): Inspection/Auscultation: abdomen normal to inspection and normal bowel sounds; abdomen not distended Percussion/Palpation: + abdomen tender (minimal at incision sites) and abdomen soft; no guarding and abdomen not rigid Skin: no rashes, warm and dry no jaundice Psychiatric: A+Ox3, euthymic affect Results & Data ([facility]) Vital Signs (Past 12 Hours) Vital Signs Temp Pulse Resp BP Pulse Ox 12/29/21 07:40 36.8 C 75 18 149/82 H 91
[2021-12-29] MEDS ORDERED: bisacodyL 5 MG TABEC PO ONE (14:03)
[2021-12-29] MEDS: ACETAMINOPHEN 325 MG TAB PO PRN (21:13)
[2021-12-29] MEDS: MONTELUKAST SODIUM 10 MG TABLET PO PRN (22:27)
--- NOTE | 2021-12-30 06:29 | Surgery Progress Note ---
Date of Service December 30, 2021 Assessment & Plan (1) Acute cholecystitis due to biliary calculus: Plan: Status post laparoscopic cholecystectomy on 12/26/2021 (postop day #4) Continue diet as tolerated Continue analgesics as needed As patient has had bowel movement we will plan on discharge home later today. Patient will follow up with [facility] general surgery in office as directed Admission and Anticipated Discharge Date Admission Date: December 25, 2021 Supervising Physician Co-Signing Physician Notes I personally saw and evaluated the patient with Riaz Rey PA-C and agree with the assessment and plan. 66-year-old female status post laparoscopic cholecystectomy on 12/26 She is tolerating a diet and had a BM overnight She is afebrile and her pain is controlled She is stable for discharge today and will follow up with Dr. Acevedo as scheduled Subjective Patient is resting comfortably in bed. She notes some pain at surgical incisions but denies any nausea vomiting. She notes that she is tolerating solid food. She says that she did have a bowel movement last evening and is also passing flatus. Physical Exam Gastrointestinal (Abdomen): Abdomen is soft with minimal distention. 4 laparoscopic incisions are covered with dressings. Bowel sounds are hypoactive. There is appropriate pain with palpation near surgical incisions. Results & Data ([facility]) Vital Signs (Past 12 Hours) Vital Signs Temp Pulse Resp BP Pulse Ox 12/30/21 00:12 36.9 C 76 12 179/96 H 92 PG Care Time/CCT Total # of Minutes Spent Total Time Spent with Patient: Total time spent is greater than 50% in coordination of care (as documented) at patient's floor/unit and/or counseling patient: Coding Level of Care Code None Diagnoses Acute cholecystitis due to biliary calculus K80.00
[2021-12-30] MEDS: OMEGA-3 (PURIFIED FISH OIL) 1 GM CAP PO SCH (07:52)
[2021-12-30] MEDS: CHOLECALCIFEROL 5,000 UNITS 125 MCG TAB PO SCH (07:52)
[2021-12-30] MEDS: DOCUSATE SODIUM 100 MG CAP PO SCH (07:52)
[2021-12-30] MEDS ORDERED: POLYETHYLENE (MIRALAX) 17 GM PACK PO SCH (09:00)
--- NOTE | 2022-01-02 16:14 | Discharge Summary (DS) ---
DATE OF ADMISSION: 12/25/2021 DATE OF DISCHARGE: 12/30/2021 OPERATION: Laparoscopic cholecystectomy. SURGEON: Job Acevedo MD. DETAILS OF DISCHARGE SUMMARY: This is a 66-year-old female who presented to the hospital ER with acu te right upper quadrant pain. The patient had an ultrasound diagnosis of acute cholecystitis. We too k the patient to the OR, we did laparoscopic cholecystectomy. After the procedure, the patient is do ing fine, tolerates a diet and patient had physical therapy, got out of bed and moved around, and the patient denies any nausea or vomiting, and 12/30 is postoperative day #4. PHYSICAL EXAMINATION: VITAL SIGNS: Temperature is 36.9, heart rate 76, respiratory rate 12, blood pressure 179/96, O2 satu ration 92% on room air. GENERAL: The patient is alert, awake, oriented x3. HEENT: Within normal limitation. NEUROLOGIC: Intact. NECK: No JVD. CHEST: Bilateral lung sounds clear. HEART: Normal S1 and S2. No murmur. ABDOMEN: Soft, no tenderness. All incisions intact. No redness, no distention. Bowel sounds posit arik. EXTREMITIES: No edema. The patient will go home on 12/30/2021. We gave the patient postop care instruction, patient underst ands. I will follow up the patient in 2 weeks in my office. Job ID: [id number]
== END 2021-12-30 15:22 | disposition home or self-care (01) | DRG 418 ==
LOC: ED 08:44 → 3N 12:41